=== PATIENT | male | born 1985 | race Caucasian/White ===

== ENCOUNTER 2016-05-27 04:08 | Emergency (ER) | payer SELFPAY ==
[~2016-05-27] VITALS: Ht 185.4 cm; Wt 83.9 kg
--- NOTE | 2016-05-27 04:10 | NUR ---
PT BIBRA W/ CO METH OD. STATES THAT HE HAS TAKEN ADDERAL, METH AND MARIJUANA YESTERDAY AT 1700. PT A/OX4, VERY NERVOUS AND PARANOI, "I FEEL LIKE IM LOSING MY MIND". PUT ON MONITOR W. TACHYCARDIA W/ HR 140S. DR RHODES AT BEDSIDE. EKG DONE AT BEDSIDE
[2016-05-27] MEDS ORDERED: LORAZEPAM INJ 2 MG/ML VIAL ONE (04:12)
[2016-05-27] MEDS ORDERED: IV NS 0.9% 1,000 ML ONE (04:12)
[2016-05-27] MEDS ORDERED: IV NS 0.9% 1,000 ML BAG IV ONE (04:30)
[2016-05-27] MEDS ORDERED: LORAZEPAM INJ 2 MG/ML VIAL IV ONE (04:30)
--- NOTE | 2016-05-27 05:40 | NUR ---
IV removed. Catheter intact and site benign. Pressure and 4x4 applied to site. No bleeding noted.Patient discharged to home in stable condition. Written and verbal after care instructions given. Patient verbalizes understanding of instruction.
[2016-05-27 05:42] VITALS: BP 148/84
== END 2016-05-27 05:43 | disposition home or self-care (01) ==
LOC: ER 04:10
DX: R00.2 Palpitations (principal); F41.9 Anxiety disorder, unspecified; F19.10 Other psychoactive substance abuse, uncomplicated
CPT/HCPCS: A4606; J2060; J7030; Z7610